=== PATIENT | female | born 1985 | race Caucasian/White ===

== ENCOUNTER 2019-11-12 19:55 | Outpatient (CLI) | payer OTHER ==
[2019-11-12 21:13] LABS: Basophils % (A) 1 %; Eosinophils # (A) 0.1 k/uL (0-0.7); Eosinophils % (A) 2 %; HCT 34.7 % (34.0-46.0); HGB 11.4 gm/dL (11.4-16.0); Lymphocytes # (A) 1.3 k/uL (1.0-4.8); Lymphocytes % (A) 22 %; MCH 29.3 pg (25.0-35.0); MCHC 32.9 g/dL (31.0-37.0); Mean Platelet Volume 10.1; Monocytes # (A) 0.4 k/uL (0-1.0); Monocytes % (A) 6 %; Neutrophils # (A) 4.2 k/uL (1.3-7.7); Neutrophils % (A) 69 %; Platelet Count 111 k/uL (150-450); RDW 14.9 % (11.5-15.5); WBC 6.2 k/uL (3.8-10.6)
[2019-11-13 00:06] VITALS: BP 134/92; PULSE 80; RESP 16; TEMP 96.8
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
== END 2019-11-13 00:04 | disposition home or self-care (01) ==
LOC: FBPOP 19:55
PROVIDERS: ATTEND Obstetrics & Gynecology
DX: O26.93 Pregnancy related conditions, unspecified, third trimester (principal); Z3A.37 37 weeks gestation of pregnancy
CPT/HCPCS: 59025; 84450; 84460; 84550; 85025; 99213

== ENCOUNTER 2019-11-25 20:13 | Outpatient (CLI) | payer OTHER ==
[2019-11-25 22:07] VITALS: BP 137/82; PULSE 82; RESP 16; TEMP 97.2
--- NOTE | 2019-11-27 11:05 | P.MSEPDOC ---
Presenting Problems - Arrival Data Date of Arrival on Unit: 11/25/19 Time of Arrival on Unit: 20:13 Mode of Transport: Ambulatory - Complaint OB-Reason for Admission/Chief Complaint: Possible Onset of Labor Comment: Patient presents to triage with contractions that are approximately 8- 10 minutes apart, denies leaking of fluid or vaginal bleeding. States contractions started around 1400 this afternoon. Medical History - Information : 3 Para: 1 Term: 0 : 1 Abortions: Spontaneous or Elective: 1 Number of Living Children: 2 - Gestational Age Gestational Age by DARLENE (wks/days): 39 Weeks and 0 Days - History Complications: Prior , Prior Comment: First was a c/s for 27 week twins. Review of Systems - Review of Systems Constitutional: No problems Breast: No problems ENT: No problems Cardiovascular: No problems Respiratory: No problems Gastrointestinal: No problems Genitourinary: No problems Musculoskeletal: No problems Neurological: No problems Skin: No problems Vital Signs - Temperature Temperature: 97.2 F Temperature Source: Temporal Artery Scan - Pulse Pulse Oximetery Pulse Rate: 82 Pulse Assessment Method: Pulse Oximetry - Respirations Respiratory Rate: 16 Oxygen Delivery Method: Room Air - Blood Pressure Sitting Blood Pressure: 137/82 Blood Pressure Mean: 100 Blood Pressure Source: Automatic Cuff Medical Screen Scoring (Pre) - Cervical Exam Dilation: 0 cm = 0 Membranes: Intact - Uterine Contractions Frequency: > 5 minutes apart = 1 Duration: > 40 seconds = 2 Intensity: N/A - Maternal Vital Signs Maternal Temperature: N/A Maternal Blood Pressure: N/A Signs of Preeclampsia: N/A Maternal Respirations: N/A - Maternal Trauma Maternal Trauma: N/A - Assessment - Baby A Baseline FHR: 125 Heart Rate - NICHD Category: Category I (Normal) = 0 NST: Reactive Position: N/A - Total Score - Baby A Total Score - Baby A: 3 - Total Score - Baby B Total Score - Baby B: 3 - Total Score - Baby C Total Score - Baby C: 3 - Level of Risk - Baby A Level of Risk - Baby A: Low (0-5) - Level of Risk - Baby B Level of Risk - Baby B: Low (0-5) - Level of Risk - Baby C Level of Risk - Baby C: Low (0-5) Physician Notification (Pre) - Physician Notified Physician Notified Date: 11/25/19 Physician Notified Time: 21:40 New Order Received: Yes - Notification Comment Comment: Orders given to discharge patient home with instructions, patient to keep regularly scheduled appt for 11/[address] Orozco. Disposition - Disposition OB Disposition: Discharge to home, Written follow up instructions reviewed Discharge Date: 11/25/19 Discharge Time: 21:52 I agree with the RN Medical Screening Exam: Yes Risk & Benefit of care provided described in d/c instruction: Yes Diagnosis: false labor at term
== END 2019-11-25 21:52 | disposition home or self-care (01) ==
LOC: FBPOP 20:13
PROVIDERS: ATTEND Obstetrics & Gynecology
DX: O47.1 False labor at or after 37 completed weeks of gestation (principal); Z3A.39 39 weeks gestation of pregnancy
CPT/HCPCS: 59025; 99213

== ENCOUNTER 2019-11-29 06:00 | Inpatient (IN) | payer OTHER ==
[2019-11-29] MEDS ORDERED: CITRIC ACID-SODIUM CITRATE 15 ML CUP PO ONE (10:45)
[2019-11-29 11:03] LABS: Basophils % (A) 0 %; Eosinophils % (A) 1 %; HCT 33.1 % (34.0-46.0); HGB 10.9 gm/dL (11.4-16.0); Lymphocytes # (A) 1.2 k/uL (1.0-4.8); Lymphocytes % (A) 16 %; MCHC 32.8 g/dL (31.0-37.0); MCV 88.5 fL (80.0-100.0); Mean Platelet Volume 10.2; Monocytes # (A) 0.5 k/uL (0-1.0); Monocytes % (A) 6 %; Neutrophils # (A) 5.4 k/uL (1.3-7.7); Neutrophils % (A) 76 %; Platelet Count 115 k/uL (150-450); RBC 3.74 m/uL (3.80-5.40); RDW 15.3 % (11.5-15.5); WBC 7.1 k/uL (3.8-10.6)
[2019-11-29] MEDS: LACTATED RINGERS 1,000 ML IV SCH ×2 (11:33→18:40)
[2019-11-29] MEDS ORDERED: NALBUPHINE 10 MG/ML (1 ML AMP) ONE (12:09)
[2019-11-29] MEDS ORDERED: KETOROLAC 15 MG/ML 1 ML VIAL ONE (12:09)
[2019-11-29] MEDS ORDERED: MORPHINE SULFATE (PF) 0.3 MG/0.3 ML SYR ONE (12:09)
[2019-11-29] MEDS ORDERED: OXYTOCIN 10 UNIT/ML 1 ML VIAL ONE (12:09)
[2019-11-29] MEDS ORDERED: ONDANSETRON 4 MG/2 ML VIAL ONE (12:09)
[2019-11-29] MEDS ORDERED: PHENYLEPHRINE-0.9% NACL SYG 1 MG/10 ML SYRINGE ONE (12:09)
[2019-11-29] MEDS ORDERED: diphenhydrAMINE 50 MG/ML 1 ML VIAL IVP PRN ×2 (13:07)
[2019-11-29] MEDS ORDERED: ZOLPIDEM 5 MG TAB PO PRN (13:07)
[2019-11-29] MEDS ORDERED: diphenhydrAMINE 50 MG CAP PO PRN (13:07)
[2019-11-29] MEDS ORDERED: HYDROcodone/APAP 5-325MG 1 EACH TAB PO PRN (13:07)
[2019-11-29] MEDS ORDERED: ONDANSETRON 4 MG/2 ML VIAL IVP PRN (13:07)
[2019-11-29] MEDS ORDERED: HYDROcodone/APAP 7.5-325MG 1 EACH TAB PO PRN (13:07)
[2019-11-29] MEDS ORDERED: LANOLIN CREAM 5 GM TUBE TOPICAL PRN (13:07)
[2019-11-29] MEDS ORDERED: NALOXONE 0.4 MG/ML 1 ML VIAL IV PRN (13:07)
[2019-11-29] MEDS ORDERED: diphenhydrAMINE 25 MG CAP PO PRN (13:07)
[2019-11-29] MEDS ORDERED: METOCLOPRAMIDE 5 MG/ML 2 ML VIAL IVP PRN (13:07)
[2019-11-29] MEDS ORDERED: OXYTOCIN 20 UNITS/1000 ML NS 1,000 ML IV SCH (13:15)
[2019-11-29] MEDS ORDERED: LACTATED RINGERS 1,000 ML IV SCH (13:15)
--- NOTE | 2019-11-29 13:15 | P.HPOB ---
History of Present Illness H&P Date: 11/29/19 Chief Complaint: 39-4/7 weeks, previous section, unfavorable cervix The patient is a 34-year-old 3 para 0112 who presents at 39-4/7 weeks as established by 7 week ultrasound. She carries a history of a previous section at approximately 26-27 weeks for twins and, as this is a larson , requested trial of labor. As she approached term, her cervix was found to be extraordinarily unfavorable with the head remaining high. The fetus was actually breech until 36 weeks at which time it verted. After a discussion of options, the patient opted to proceed with repeat low transverse section. Her has been essentially uncomplicated. She does fall into the category of advanced maternal age and declined the trisomy testing. Group B strep status is negative. Obstetrical history: 3 para 0112 with 1 previous approximately 27 week section for transfusion. Current statistics are listed in history present illness. EDC of 12/02/2019 was established by a 7 week ultrasound. Laboratory workup demonstrates a blood type of AB+ with a negative antibody screen. Rubella status is nonimmune. Remainder of the laboratory workup was within normal limits. One hour Glucola was normal and group B strep status is negative. Gynecology history: Unremarkable with no history of any infections to include STDs. Review of Systems Review of systems is confined to history of present illness. Past Medical History Past Medical History: No Reported History History of Any Multi-Drug Resistant Organisms: None Reported Past Surgical History: Section Past Anesthesia/Blood Transfusion Reactions: No Reported Reaction Past Psychological History: No Psychological Hx Reported Smoking Status: Never smoker Past Alcohol Use History: Occasional Past Drug Use History: None Reported - Past Family History Mother Family Medical History: No Reported History Father Family Medical History: No Reported History Medications and Allergies Home Medications Medication Instructions Recorded Confirmed Type Pnv No.95/Ferrous Fum/Folic AC 1 tab PO DAILY 11/12/19 11/29/19 History [ Multivitamin Tablet] diphenhydrAMINE HCL [Benadryl] 25 mg PO DIRECTED 11/12/19 11/29/19 History Ferrous Sulfate [Iron] 325 mg PO DAILY 11/15/19 11/29/19 History Allergies Allergy/AdvReac Type Severity Reaction Status Date / Time No Known Allergies Allergy Verified 11/29/19 11:31 Exam Vital Signs Temp Pulse Resp BP Pulse Ox 11/29/19 10:28 98.1 F 73 16 133/88 99 Intake and Output 11/28/19 11/29/19 11/29/19 22:59 06:59 14:59 Other: Weight 83.007 kg In general, this is a well-developed, well-nourished white female in no acute distress. Her heart has a regular rhythm and rate without murmur. Her lungs are clear to auscultation bilaterally in all anguiano. Her abdomen is gravid, nondistended, has normal active bowel sounds, soft, nontender, and without any palpable masses aside from uterine fundus. Her extremities are without any cyanosis, clubbing, or significant edema and are nontender to palpation bilaterally. Digital cervical examination has demonstrated her cervix to be closed, thick, and very high with the vertex in presentation at approximately -3-4 station. Results Result Diagrams: 11/29/19 10:30 Abnormal Lab Results - Last 24 Hours (Table) 11/29/19 Range/Units 10:30 RBC 3.74 L (3.80-5.40) m/uL Hgb 10.9 L (11.4-16.0) gm/dL Hct 33.1 L (34.0-46.0) % Plt Count 115 L (150-450) k/uL Assessment and Plan (1) Term Current Visit: Yes Status: Acute Code(s): Z34.90 - ENCNTR FOR SUPRVSN OF NORMAL , UNSP, UNSP TRIMESTER SNOMED Code(s): 60205956 (2) Previous section Current Visit: Yes Status: Acute Code(s): Z98.891 - HISTORY OF UTERINE SCAR FROM PREVIOUS SURGERY SNOMED Code(s): 669499831 Plan: The patient is admitted for repeat low transverse section. The risks and complications the procedure been thoroughly discussed and she has understood and agreed to proceed.
--- NOTE | 2019-11-29 13:19 | P.OP ---
Date of Procedure: 11/29/19 Preoperative Diagnosis: #1. 39-4/7 weeks, previous section, requesting repeat Postoperative Diagnosis: Same Procedure(s) Performed: #1. Repeat low transverse section Anesthesia: spinal Surgeon: Edy Orozco Implementation Advisor #1: Sophie Granda Estimated Blood Loss (ml): 450 IV fluids (ml): 750 Urine output (ml): 350 Pathology: none sent Condition: stable Disposition: floor Operative Findings: The patient was taken the operating room where she was delivered of a viable 7 lbs. 10 oz. baby girl with Apgars of 9 at 1 minute and 9 at 5 minutes delivered in the right occiput transverse position. There was a nuchal cord 1 was reduced prior to delivery of the infant. The placenta was delivered manually, intact, and grossly normal with a grossly normal three-vessel cord. Uterus, tubes, and ovaries were entirely normal to inspection. Description of Procedure: The patient was prepped and draped in usual fashion after spinal anesthesia was administered by the anesthesiologist. A Pfannenstiel incision was made through pre-existing scar and extended to the abdominal cavity without difficulty. The bladder peritoneum was felt to be significantly distant from the incision and left intact. A 2 cm incision was made in the transverse plane of the lower uterine segment to enter the uterus at which time clear fluid was noted. Incision was extended in both directions using the bandage scissors. The head was delivered up and through the incision where the nose and mouth were thoroughly suctioned. A nuchal cord was noted and reduced. The remainder of the was delivered onto the field where the cord was doubly clamped, cut, and the passed resuscitative measures with weight and Apgars as noted above. A segment of cord was doubly clamped, cut, and set aside should cord gases become necessary. The placenta was delivered manually, intact, and grossly normal as noted above. The uterus was exteriorized and the interior cavity the uterus swept of any remaining placental or membranous fragments. The margins of the incision were grasped with Caputo clamps and the incision closed in 2 layers. The first layer was a running locking stitch of 0 chromic catgut followed by a running imbricating stitch of 0 chromic catgut, each from margin to margin. Any small points of bleeding were made hemostatic with the Bovie. Any larger points of bleeding were made hemostatic with a hibmra-yl-glwzh stitch of 0 chromic catgut. The posterior cul-de-sac was suctioned with a guard and the uterine and ovarian findings were normal as noted above. The uterus was replaced within the abdominal cavity and the gutters were swept of any blood, fluid, or clot. The incision was reexamined and found to be hemostatic. The parietal peritoneum was loosely reapproximated and layer of muscles examined and found to be hemostatic. The fascia was closed with 2 running stitches of 0 Vicryl proceeding from lateral margins to the midpoint. The subcutaneous tissues were irrigated, made hemostatic with the Bovie, and reapproximated with a running stitch of 30 plain catgut. The skin was re- approximate with a running subcuticular stitch of 4-0 Vicryl followed by half- inch Steri-Strips placed with Mastisol. Assessment a blood loss for the entire case was approximate 450 mL. There were no complications. All sponge, instrument, and needle counts were correct. The patient tolerated the procedure well and proceeded to the recovery room in stable condition. Both mother and infant are resting comfortably in recovery.
[2019-11-29] MEDS ORDERED: DIPH,PERTUS(ACELL)TETVAC-LF 0.5 ML VIAL IM ONE (13:51)
[2019-11-29] MEDS ORDERED: MEASLES-MUMPS-RUBELLA VACC/PF 12,500 UNIT/0.5 ML VIAL SQ ONE (14:06)
[2019-11-29] MEDS: KETOROLAC 15 MG/ML 1 ML VIAL IVP PRN (19:23)
[2019-11-29] MEDS: SENNOSIDES-DOCUSATE SODIUM 1 EACH TAB PO SCH (21:57)
[2019-11-30] MEDS: KETOROLAC 15 MG/ML 1 ML VIAL IVP PRN ×2 (02:06→08:06)
[2019-11-30] MEDS: LACTATED RINGERS 1,000 ML IV SCH ×2 (05:47→23:25)
--- NOTE | 2019-11-30 06:24 | P.PN ---
Progress Note - Text Progress Note Date: 11/30/19 Postoperative day 1 status post section under spinal anesthesia, and intrathecal morphine given for postoperative analgesia, patient doing well, there is a anesthesia related competitions. Patient had no headache, vital signs stable Assessment and plan = postop day 1 status post , doing well there is no anesthesia related complication
[2019-11-30] MEDS: SENNOSIDES-DOCUSATE SODIUM 1 EACH TAB PO SCH ×2 (08:07→23:25)
[2019-11-30 09:55] LABS: Basophils % (A) 0 %; Eosinophils # (A) 0.2 k/uL (0-0.7); Eosinophils % (A) 2 %; HCT 32.8 % (34.0-46.0); HGB 10.8 gm/dL (11.4-16.0); Lymphocytes # (A) 0.9 k/uL (1.0-4.8); Lymphocytes % (A) 10 %; MCH 29.1 pg (25.0-35.0); MCV 88.3 fL (80.0-100.0); Mean Platelet Volume 9.3; Monocytes # (A) 0.4 k/uL (0-1.0); Monocytes % (A) 4 %; Neutrophils # (A) 7.1 k/uL (1.3-7.7); Neutrophils % (A) 83 %; Platelet Count 115 k/uL (150-450); RBC 3.72 m/uL (3.80-5.40); WBC 8.5 k/uL (3.8-10.6)
--- NOTE | 2019-11-30 09:56 | P.PNOBGPC ---
Subjective - Subjective Patient reports: Reports appetite normal, Reports voiding normally, Reports pain well controlled, Reports ambulating normally : doing well, nursing well Objective - Vital Signs Latest vital signs: Vital Signs Temp Pulse Resp BP Pulse Ox 11/30/19 08:00 98.4 F 83 16 131/85 11/30/19 03:19 98.1 F 81 16 130/93 97 11/30/19 00:00 98.1 F 85 16 143/93 96 11/29/19 20:00 97.7 F 70 16 145/92 95 11/29/19 15:45 96.9 F L 86 16 136/78 99 11/29/19 15:03 88 16 134/77 99 11/29/19 14:32 70 16 133/78 97 11/29/19 13:48 72 16 129/81 96 11/29/19 13:33 83 16 128/79 95 11/29/19 13:17 97.1 F L 80 16 121/74 95 11/29/19 13:03 90 16 113/72 95 11/29/19 10:28 98.1 F 73 16 133/88 99 Intake and Output 11/29/19 11/30/19 11/30/19 22:59 06:59 14:59 Intake Total 150 Output Total 700 700 Balance -550 -700 Intake: Oral 150 Output: Urine 500 700 Emesis 200 Other: Voiding Method Indwelling Catheter # Voids 1 1 - Exam Extremities: Present: normal Abdomen: Present: normal appearance, soft. Absent: distention, tenderness Incision: Present: normal, dry, intact Uterus: Present: normal, firm (The uterine fundus is, and appropriately tender at the umbilicus.) - Labs Labs: Abnormal Lab Results - Last 24 Hours (Table) 11/29/19 11/30/19 Range/Units 10:30 09:47 RBC 3.74 L 3.72 L (3.80-5.40) m/uL Hgb 10.9 L 10.8 L (11.4-16.0) gm/dL Hct 33.1 L 32.8 L (34.0-46.0) % Plt Count 115 L 115 L (150-450) k/uL Lymphocytes # 0.9 L (1.0-4.8) k/uL Assessment and Plan (1) Term Current Visit: Yes Status: Acute Code(s): Z34.90 - ENCNTR FOR SUPRVSN OF NORMAL , UNSP, UNSP TRIMESTER SNOMED Code(s): 52325638 (2) Previous section Current Visit: Yes Status: Acute Code(s): Z98.891 - HISTORY OF UTERINE SCAR FROM PREVIOUS SURGERY SNOMED Code(s): 863089700 (3) S/P section Current Visit: Yes Status: Acute Code(s): Z98.891 - HISTORY OF UTERINE SCAR FROM PREVIOUS SURGERY SNOMED Code(s): 149194735 Plan: Continue routine postoperative care. I have encouraged the patient admitted in the hallways routinely. I would anticipate discharge home tomorrow pending no complications with either mother or baby.
[2019-11-30] MEDS: ACETAMINOPHEN TAB 325 MG TAB PO PRN (12:53)
[2019-11-30] MEDS: IBUPROFEN 600 MG TAB PO PRN ×2 (16:14→23:26)
[2019-12-01] MEDS: IBUPROFEN 600 MG TAB PO PRN (05:28)
--- NOTE | 2019-12-01 09:03 | P.DS ---
Providers Date of admission: 11/29/19 10:04 Expected date of discharge: 12/01/19 Attending physician: Edy Orozco Primary care physician: Stated None - Discharge Diagnosis(es) (1) Advanced maternal age (AMA) in Current Visit: Yes Status: Acute (2) Previous section Current Visit: Yes Status: Acute (3) S/P section Current Visit: Yes Status: Acute (4) Term Current Visit: Yes Status: Acute Hospital Course: This is a 34-year-old 3 para 0112 that presented to labor and delivery at 39-4/7 weeks for scheduled . Patient has a history of prior at 26/27 weeks secondary to twins. Patient has been receiving routine care which has been essentially uncomplicated. She is noted to be advanced maternal age and declined genetic testing. Patient underwent repeat section without difficulty, for further details on the please see the operative report. Patient delivered a liveborn female weight of 7 lbs. 10 oz. and Apgars of 9 and 9 at one and 5 minutes respectively. Patient's postoperative course is been essentially uneventful. On this postop day #2 she is ambulating and voiding without difficulty. She is tolerating a regular diet without nausea or vomiting. She states her pain is well- controlled. She would like discharge home. Patient Condition at Discharge: Good Plan - Discharge Summary New Discharge Prescriptions: No Action Pnv No.95/Ferrous Fum/Folic AC [ Multivitamin Tablet] 1 tab PO DAILY diphenhydrAMINE HCL [Benadryl] 25 mg PO DIRECTED Ferrous Sulfate [Iron] 325 mg PO DAILY Discharge Medication List Pnv No.95/Ferrous Fum/Folic AC [ Multivitamin Tablet] 1 tab PO DAILY 11/12/19 [History] diphenhydrAMINE HCL [Benadryl] 25 mg PO DIRECTED 11/12/19 [History] Ferrous Sulfate [Iron] 325 mg PO DAILY 11/15/19 [History] Follow up Appointment(s)/Referral(s): Edy Orozco MD [STAFF PHYSICIAN] - 2 Weeks Patient Instructions/Handouts: (DC), (GEN) Discharge Disposition: HOME SELF-CARE
[2019-12-01] MEDS: SENNOSIDES-DOCUSATE SODIUM 1 EACH TAB PO SCH (09:18)
[2019-12-01] MEDS: ACETAMINOPHEN TAB 325 MG TAB PO PRN (09:19)
[2019-12-01 09:31] VITALS: BP 115/87; PULSE 91; RESP 18; TEMP 98.3
== END 2019-12-01 10:52 | disposition home or self-care (01) | DRG 788 ==
LOC: 4FBP 10:04
PROVIDERS: ADMIT Obstetrics & Gynecology; ATTEND Obstetrics & Gynecology
PROC: 10D00Z1 Extraction of Products of Conception, Low, Open Approach (ICD-10-PCS; principal; 2019-11-29 06:00)
DX: O34.211 Maternal care for low transverse scar from previous cesarean delivery (principal); O69.81X0 Labor and delivery complicated by cord around neck, without compression, not applicable or unspecified; Z37.0 Single live birth; Z3A.39 39 weeks gestation of pregnancy
CPT/HCPCS: 85025; 86850; 86900; 86901; 90707; 90715